=== PATIENT | male | born 1970 | race African-American/Black ===

== ENCOUNTER 2024-04-15 00:54 | Emergency (ER) | payer BC, SELFPAY ==
[2024-04-15 00:56] VITALS: BP 150/92
--- NOTE | 2024-04-15 02:10 | ED.GENMED ---
History of Present Illness
General
Chief Complaint: DVT/Possible Blood Clot
Source: patient
Exam Limitations: none
Time Seen by Provider: 04/15/24 01:50
Nursing documentation reviewed up to this point in time: agreed with
History of Present Illness
History of Present Illness:
54-year-old male with past medical history of GERD presenting to the emergency department today with concerns of right thigh discomfort started 5 days ago denies specific inciting event has been on multiple flights in the last few months. Also does
use an injection to the right thigh once a month. Denies any fevers numbness weakness any history of blood clots.
Past History
Past History
ED Past Medical History: Other (llergy, migraines)
ED Past Surgical History: Negative Cardiac
Social History
Tobacco: Non-smoker
Alcohol: None
Drug: None
Living: with family
Employment: Employed
Family History
Family History: Hypertension
Review of Systems
Review of Systems
Allergies reviewed?: Yes
All Other Systems: ROS reviewed and negative except as documented in HPI and ROS
Phy Exam
Physical Exam
Physical Exam:
GENERAL: Alert , in no apparent distress
EYE: pupils equal and reactive
NECK: Supple, no significant adenopathy.
ENT: o/p clr, mmm.
CARDIAC: Regular rate and rhythm .
LUNGS: Clear breath sounds bilaterally, no acute respiratory distress, no wheezes/rales/rhonchi
ABDOMEN: Soft, without focal tenderness, no r/g, no cvat
NEUROLOGICAL: Alert and oriented, no focal neuro deficits
SKIN: Warm and dry, skin intact.
MUSCULOSKELETAL: No edema, well perfused.
PSYCH: Normal and appropriate interaction.
Course
Orders/Labs/Results
Orders:
Orders
04/15/24 01:01
Periph Venous Lwr Ext Rt US [US Periph Venous LOWER Ext RT] Urgent
Comment:
Reason For Exam: FREQ PLANE TRIPS, RIGHT UPPER PAIN, KNOT
04/15/24 02:03
Prednisone [Deltasone] 50 mg PO NOW STA
CR Femur - Right Min 2 Vw Urgent
Comment:
Reason For Exam: leg pain
Hip, Right 2-3 Views [CR Hip - RT w/wo Pel 2-3 Vw*] Urgent
Comment:
Reason For Exam: right hip pain
Include a pelvis x-ray?: Yes
Vital Signs
Initial and Last Documented VS:
Initial Vital Signs
Temp Pulse Resp BP Pulse Ox
97.8 F 74 22 150/92 98
04/15/24 00:56 04/15/24 00:56 04/15/24 00:56 04/15/24 00:56 04/15/24 00:56
Last Documented Vital Signs
Temp Pulse Resp BP Pulse Ox
97.8 F 70 16 137/82 97
04/15/24 00:56 04/15/24 02:52 04/15/24 02:52 04/15/24 02:52 04/15/24 02:52
MDM/Problems Addressed
MDM/Problems Addressed:
54-year-old male presenting to the emergency department today with concerns of right thigh discomfort over the past 5 days made worse with certain positions. Denies any fevers no overlying skin changes no repeat reproducible tenderness no signs of
infection good range of motion and strength of the hip knee and ankle. There is some degree of reproducible tenderness to the lateral mid thigh. Ultrasound was performed that did not show any evidence of DVT. X-rays were performed without acute
abnormalities. Patient advised for rest the area was also given a steroid as symptoms could be radicular. Patient advised for close outpatient follow-up. Return precautions given.
*Critical Care Note
Total Time (30-74mins, 75-104mins- exclusive of procedures): Not Applicable
ED Attending Note
-
Portions of this chart may have been created with voice recognition software.� Occasional wrong word or��sound alike� substitutions may have occurred due to the inherent limitations of voice recognition software.
Discharge Plan
Departure
Patient Disposition: Home (Routine Discharge)
Date of Disposition: 04/15/24
Time of Disposition: 02:41
Patient with high blood pressure during this ER visit?: No
Condition: Good
Covid-19: Not Applicable
Discharge Problem:
Leg pain
Instructions: Muscle and bone pain - Discharge instructions
Prescriptions:
New
prednisone 20 mg tablet
40 mg PO DAILY 4 Days Qty: 8 0RF
No Action
triamcinolone acetonide 16.5 GM aerosol,spray
2 sprays NS DAILY
naproxen sodium [Aleve] 220 MG tablet
440 mg PO PRN PRN (Reason: pain)
azelastine 137 MCG/SPRAY aerosol,spray
2 spray intranasal DAILY
Butalbital
2 cap PO PRN PRN (Reason: migraines)
Pseudoephedrine
2 tab PO PRN PRN (Reason: allergies)
Relpax
1 tab PO PRN PRN (Reason: migraines)
Patient Comments:
pt does not know strength
Referrals:
Mahesh Menjivar MD [Family Provider] -
Activity Restrictions/Additional Instructions:
You came to the emergency department today with concerns leg discomfort. Here you had an ultrasound and x-rays without acute abnormalities. Please rest ice and follow-up closely as an outpatient as needed. Return to the emergency department for
any worsening, new or concerning symptoms.
Interventions
Interventions:
*Risk Screen - Suicide Last Done: 04/15/24 00:56
*General Assessment Last Done: 04/15/24 02:30
*Neglect/Abuse Screening Last Done: 04/15/24 00:56
*ED COVID-19 Vaccine History Last Done: 04/15/24 02:30
*Nursing Disposition Last Done: 04/15/24 02:52
ED- Cardiac Assessment Last Done: 04/15/24 02:30
ED- Pulmonary Assessment Last Done: 04/15/24 02:30
ED-Peripheral Vascular Assessment Last Done: 04/15/24 02:30
ED-Skin Assessment Last Done: 04/15/24 02:30
Discharge Date and Time
Discharge Date/Time: 04/15/24 02:53
Print Language: PASHTO
[2024-04-15] MEDS: DELTASONE 50 MG PO (02:46)
[2024-04-15 02:52] VITALS: BP 137/82
== END 2024-04-15 02:53 | disposition home or self-care (01) ==
LOC: EMR 00:54
PROVIDERS: EMERGENCY PHYSICIAN Emergency Medicine; FAMILY PHYSICIAN Family Medicine
DX: M79.604 Pain in right leg (principal); K21.9 Gastro-esophageal reflux disease without esophagitis
CPT/HCPCS: 99284; 73502; 73552; 93971

== ENCOUNTER → 2024-12-28 11:32 | Outpatient (REF) | payer BC, SELFPAY | LOC: HWRAD 11:32 | PROVIDERS: ATTENDING PHYSICIAN Physician Assistant | DX: E78.00 Pure hypercholesterolemia, unspecified (principal) | CPT/HCPCS: 75571 ==